=== PATIENT | male | born 1980 | race Caucasian/White ===

== ENCOUNTER 2023-12-14 19:34 | Emergency (ER) | payer OTHER, MEDICAID, SELFPAY ==
[2023-12-14 19:35] VITALS: BP 150/106; PULSE 78; RESP 18; TEMP 36.3; O2SAT 98; BMI 33.0
--- NOTE | 2023-12-14 21:02 | EX.ED.UPPERE ---
HPI History of Present Illness HPI Narrative: Patient presents with a laceration to his left index finger that occurred today at work. Patient states he was reaching into a machine and accidentally cut his finger on a piece of metal. Patient states the bleeding has been persistent. Patient describes his pain as dull. Patient states nothing makes it better nothing makes it worse. Patient applied pressure to his finger. Patient states a coworker put a dressing on his finger. Patient denies any paresthesias or weakness. Patient denies any other injuries. Patient states his last tetanus was less than 10 years ago. Chief Complaint: Laceration Informant: patient Occured/Mechanism Mechanism/Context: Yes work related Onset/Context/Timing Onset: Today Context: Sudden Onset Timing: Continuous Quality of Pain: Dull Location: Left index finger middle phalanx Worsened by: Nothing Relieved by: Nothing Associated Symptoms Associated Symptoms: Negative for Parasthesia, Weakness or Loss of Funtion Narrative Tetanus Immunization: 5-10 years [facility] Medical History (Updated 12/14/23 @ 21:[address] Cristobal Christina DO) Gout Hypertension Allergy/AdvReac Type Severity Reaction Status Date / Time No Known Allergies Allergy Verified 12/14/23 19:40 Surgical History no surgical history no surgical history Social History (Updated 12/14/23 @ 21:[address] Cristobal Christina DO) Smoking Status: Current every day smoker tobacco type: cigarettes ROS ROS ED Constitutional Constitutional ED: Denies chills or fever(s) Eyes Eyes: Denies blurry vision or change in vision ENT ENT ED: Denies rhinorrhea or sore throat Cardiovascular Cardiovascular: Denies chest pain or palpitations Respiratory/Chest Respiratory/Chest: Reports cough; Denies dyspnea Gastrointestinal Gastrointestinal: Denies nausea or vomiting Genitourinary Genitourinary ED: Denies dysuria or hematuria Musculoskeletal Musculoskeletal: Denies back pain or neck pain Integumentary Denies abscess or rash Neurologic Neurologic: Denies headache(s) or weakness Allergic/Immunologic Allergic/Immunologic ED: Denies mouth swelling or urticaria EXAM Physical Exam Const Vital Signs: 12/14/23 19:35 Temperature 97.3 F L Temperature Source Temporal Pulse Rate 78 Respiratory Rate 18 Blood Pressure 150/106 H Blood Pressure Mean 120 Pulse Ox 98 Oxygen Delivery Method Room Air Positive well nourished and well developed General Appearance ED: well developed and NAD HEENT Reports moist mucous membranes Neck full ROM and supple Extremity Extremity Narrative: There is a 2 cm full-thickness linear laceration over the radial aspect of the middle phalanx of the left index finger. There is moderate amount of bleeding noted. There are no foreign bodies visualized. Strength is 5/5 in flexion and extension of the MP, PIP, DIP joints of the left index finger. Sensation was intact to light touch in all digits. Capillary refill was less than 2 seconds in all digits. Neuro oriented x3, CN's II-XII intact bilaterally, moves all extremities, no focal motor deficits and no sensory deficits noted Sensorium / Orientation: alert Motor Exam: strength 5/5 throughout MDM MDM MDM Narrative Medical decision making narrative: The wound was cleaned and irrigated with copious amounts of normal saline. The wound was anesthetized with 1% plain lidocaine via digital block. Finger turnicot was used. The wound was closed with 2 simple interrupted # 4 -0 nylon sutures under sterile technique. Patient tolerated the procedure well. Bacitracin dressing was applied. Procedures Lacerations Left index finger: Depth: Sub Q Shape: Linear Prep: Sterile Conditions and Chlorhexadine Laceration repair: Digital block, Irrigated, Lidocaine and Skin sutures Irrigated (ml): 100 Number of Sutures/[place]: 2 Suture Information: Ethilon, Simple and 4-0 Discharge Plan Triage Chief Complaint: Laceration ED Provider: Cristobal Christina Dx/Rx/DC Orders Clinical Impression: Laceration of left index finger w/o foreign body w/o damage to nail, Tobacco use disorder Instructions: ED Laceration, Hand: All Closures Stand Alone Forms: Work Status Form Primary Care Provider: Luh Abreu Referrals: NOT,DEFINED [Non-Staff] - Clinic,NOW [Non-Staff] - 5 Days for suture removal Luh Abreu MD [Primary Care Provider] - 5 Days for suture removal Disposition Disposition: Home, Self Care
[2023-12-14] MEDS: Lidocaine 1% (20 ml mdv) 20 ML Vial INFILT (22:29)
== END 2023-12-14 22:28 | disposition home or self-care (01) ==
PROVIDERS: Emergency Provider Emergency Medicine; PCP Family Medicine; Visit Provider Emergency Medicine
DX: S61.211A Laceration without foreign body of left index finger without damage to nail, initial encounter (principal); Y99.0 Civilian activity done for income or pay; F17.210 Nicotine dependence, cigarettes, uncomplicated; W31.1XXA Contact with metalworking machines, initial encounter; Y93.89 Activity, other specified; Y92.89 Other specified places as the place of occurrence of the external cause; I10 Essential (primary) hypertension
CPT/HCPCS: 12001; 99283